=== PATIENT | female | born 2000 | race Caucasian/White ===

== ENCOUNTER 2020-03-08 16:39 | Emergency (ER) | payer BC, SELFPAY ==
[2020-03-08 16:55] VITALS: BP 153/84; PULSE 89; RESP 20; TEMP 36.7; O2SAT 100
--- NOTE | 2020-03-08 17:15 | ED.EAR ---
HPI - Ear Problem General Chief complaint: Ear Stated complaint: ear pain Time Seen by Provider: 03/08/20 17:15 Mode of arrival: ambulatory Limitations: no limitations History of Present Illness HPI Narrative: Poonam Justice is a 19 yo female with PMH of asthma has R ear pain with drainage x 3 days - states pain is really bad Related Data Home Medications Medication Instructions Recorded Confirmed albuterol sulfate [ProAir HFA] 2 puff INHALATION QID PRN 03/08/20 03/08/20 Allergies Allergy/AdvReac Type Severity Reaction Status Date / Time No Known Allergies Allergy Verified 03/08/20 17:02 Review of Systems Review of Systems: Narrative: CONSTITUTIONAL: Denies fever, chills, sweats. EYES: Denies visual changes, redness, discharge. ENT: Denies rhinorrhea, congestion, sore throat, right otalgia. CARDIOVASCULAR: Denies chest pain, palpitations, edema. RESPIRATORY: Denies dyspnea, wheezing, cough GASTROINTESTINAL: Denies abdominal pain, nausea, vomiting, diarrhea. GENITOURINARY: Denies dysuria, hematuria, abnormal discharge SKIN: Denies rash or itching. NEUROLOGIC: Denies numbness, or focal weakness. PSYCHIATRIC: Denies anxiety or depression. PMFSH Past Medical History Medical History Anxiety Bipolar disorder Depression Migraine Narcolepsy Surgical History Surgical History History of tonsillectomy Family History Family History Other No acute medical problems Social History Social History Smoking status: Never smoker Alcohol intake: never Comments At time of signature, I agree with nursing past medical, surgical, social and family history. There is no relevant family history pertinent to the presenting complaint. Should follow-up with PCP for elevated blood pressure Exam Narrative: Exam Narrative: GENERAL: This is a well-nourished, well-developed patient, in moderate distress. HEAD: normocephalic, atraumatic. EYES: Sclera clear/white. Vision is grossly intact. EARS: External ears normal, auditory canals edematous without drainage, TMs normal without perforation; in the lower right jaw under mandible NOSE: External nose normal without nasal discharge, nares without redness, mild rhinorrhea. THROAT: Mucous membranes moist, posterior pharynx NECK: Neck supple, non-tender CARDIOVASCULAR: Regular rate and rhythm without murmurs, gallops, or rubs. RESPIRATORY: Clear to auscultation. Breath sounds equal bilaterally. No wheezes, rales, or rhonchi. GASTROINTESTINAL: Abdomen soft, non-tender, SKIN: warm, intact with no suspicious lesions or rash, good texture and turgor. NEURO: awake, alert, and oriented to person, place and time. There were no obvious focal neurologic abnormalities. Steady gait EXTREMITIES: Normal range of motion. BACK: Nontender without deformity Course Course Emergency Course: Started on PCN and eardrops, Flonase Vital Signs Vital signs: Vital Signs Temperature 98.1 F 03/08/20 16:55 Pulse Rate 89 03/08/20 16:55 Respiratory Rate 20 03/08/20 16:55 Blood Pressure 153/84 H 03/08/20 16:55 Pulse Oximetry 100 03/08/20 16:55 Temperature 98.1 F 03/08/20 16:55 Pulse Rate 89 03/08/20 16:55 Respiratory Rate 20 03/08/20 16:55 Blood Pressure 153/84 H 03/08/20 16:55 Pulse Oximetry 100 03/08/20 16:55 Medical Decision Making Differential Diagnosis Differential Diagnosis: Dental pain, ear pain, otitis media Vital Signs Vital Signs: Vital Signs Temperature 98.1 F 03/08/20 16:55 Pulse Rate 89 03/08/20 16:55 Respiratory Rate 20 03/08/20 16:55 Blood Pressure 153/84 H 03/08/20 16:55 Pulse Oximetry 100 03/08/20 16:55 Temperature 98.1 F 03/08/20 16:55 Pulse Rate 89 03/08/20 16:55 Respiratory Rate 20 0
== END 2020-03-08 17:38 | disposition home or self-care (01) ==
PROVIDERS: Emergency Provider Nurse Practitioner
DX: H66.91 Otitis media, unspecified, right ear (principal); K08.89 Other specified disorders of teeth and supporting structures
CPT/HCPCS: 99213; G0463

== ENCOUNTER 2020-08-22 11:35 | Emergency (ER) | payer BC, SELFPAY ==
[2020-08-22 11:38] VITALS: BP 151/87; PULSE 87; RESP 14; TEMP 36.8; O2SAT 100
[2020-08-22 11:51] VITALS: BP 151/87; PULSE 87; RESP 14; TEMP 36.8; O2SAT 100
--- NOTE | 2020-08-22 12:06 | ED.URI ---
HPI - URI/Sore Throat General Chief Complaint: Upper Respiratory Infection Stated Complaint: sore throat Time Seen by Provider: 08/22/20 12:07 Source: patient History of Present Illness HPI Narrative: Patient presents with a sore throat that started 4 days ago. Patient states she has been exposed to strep throat and works at [employer]. Patient states it hurts to swallow but has no trouble swallowing and no drooling. Patient denies any COVID-19 exposure. Patient denies any shortness of breath no chest pain. MD elicited complaint: sore throat Related Data Home Medications Medication Instructions Recorded Confirmed ferrous sulfate 325 mg PO BID 08/22/20 08/22/20 Allergies Allergy/AdvReac Type Severity Reaction Status Date / Time No Known Allergies Allergy Verified 08/22/20 11:50 Review of Systems Review of Systems: Narrative: CONSTITUTIONAL: Denies chills, or sweats. Reports fever and generalized body aches EYES: Denies visual changes, redness, or discharge. ENT: Denies otalgia. Reports nasal congestion runny nose and sore throat CARDIOVASCULAR: Denies chest pain, palpitations, or edema. RESPIRATORY: Denies dyspnea. Reports occasional cough GASTROINTESTINAL: Denies abdominal pain, nausea, vomiting, or diarrhea. GENITOURINARY: Denies dysuria or hematuria. SKIN: Denies rash or itching. MUSCULOSKELETAL: Denies back pain, joint pain, or myalgia. Reports generalized body aches NEUROLOGIC: Denies headache, numbness, or weakness. PSYCHIATRIC: Denies anxiety or depression. [facility] Past Medical History Medical History (Updated 08/22/20 @ 12:11 by JANE Hudson) Anxiety Bipolar disorder Depression Migraine Narcolepsy Surgical History Surgical History History of tonsillectomy Family History Family History Other No acute medical problems Social History Social History Smoking status: Never smoker Alcohol intake: never Exam Narrative: Exam Narrative: The patient is a well-developed, well-nourished in no acute distress. SKIN: Skin is warm and dry without erythema, swelling or exudate. There is good turgor. No tenting. HEAD: Atraumatic. Normocephalic. No temporal or scalp tenderness. EYES: Moist and bright. Sclera and conjunctivae normal. No discharge. PERRLA. Extraocular motions intact. Gross visual acuity intact. EARS: Pinna is normal shape and contour. Clear external auditory canals. TM pearly mann with good cone of light, no erythema or suppuration. Bilateral cerumen noted no gross hearing deficit. NOSE: pink, moist mucosa with good air movement. Clear rhinorrhea without nasal flaring. Septum midline. Mouth: moist mucous membranes. THROAT; mild erythema noted to posterior oropharynx with moderate postnasal drainage. Without exudate or ulceration.. Uvula midline. Normal movement of soft palate. NECK: Supple and nontender with full range of motion without discomfort. No meningeal signs. LUNGS: Equal and bilateral breath sounds without wheezes, rales or rhonchi. CHEST: The chest wall is without retractions or use of accessory muscles. HEART: Has a regular rate and rhythm without murmur, gallops, click or rub. ABDOMEN: Soft, nontender with positive active bowel sounds. No rebound tenderness. EXTREMITIES: Without cyanosis, clubbing or edema. Equal 2+ distal pulses and 2 second capillary refill noted. NEUROLOGIC: alert, active, . The patient moves all extremities with normal muscle strength. Normal muscle tone is noted. Normal coordination is noted. NO focal neurological findings noted. Course Vital Signs Vital signs: Vital Signs Temperature 36.8 C 08/22/20 11:38 Pulse Rate 87 08/22/20 11:38 Respiratory Rate 14 08/22/20 11:38 Blood Pressure 151/87 H 08/22/20 11:38 Pulse Oximetry 100 08/22/20 11:38 Temperature 36.8 C
== END 2020-08-22 12:16 | disposition home or self-care (01) ==
PROVIDERS: Emergency Provider Nurse Practitioner Family
DX: J02.9 Acute pharyngitis, unspecified (principal); J02.0 Streptococcal pharyngitis
CPT/HCPCS: 87081; 87804; 87880; 99213; G0463

== ENCOUNTER 2020-09-22 12:43 | Inpatient (IN) | payer BC, SELFPAY ==
[2020-09-22] VITALS (11 sets, daily range): BP systolic 104–177; BP diastolic 48–112; PULSE 65–94; RESP 14–20; TEMP 36.7–37.2; O2SAT 94–100; BMI 44.7; BMI 42.3
--- NOTE | ~2020-09-22 | CT_ITS ---
EXAMINATION: CT abdomen pelvis w con DATE: 09/22/2020 14:42 INDICATION: Left abdominal pain. TECHNIQUE: Computed tomography (CT) of the abdomen and pelvis was performed with 100 mL Omnipaque 350 intravenous contrast. Automated exposure control and iterative reconstruction technique were employe d. The dose-length product was 1196.27 mGy-cm. COMPARISON: None. FINDINGS: The visualized portions of the lung bases are clear without pneumonia or pleural effusion. The heart size is normal. No pericardial effusion. The liver, gallbladder, spleen, pancreas, adrenal glands, and kidneys are normal. There are no dilated loops of bowel. The appendix is normal. There ar e no pathologically enlarged lymph nodes. There is no free intraperitoneal fluid. There is a 3.9 cm c yst in right ovary. The bones are unremarkable. IMPRESSION: 1. 3.9 cm cyst in right ovary, likely a follicular cyst. Reviewed, dictated and finalized at location A. LE POINTED OPERATOR
--- NOTE | 2020-09-22 13:05 | ED.ABDPAIN ---
HPI - Abdominal Pain General Chief Complaint: Abdominal Pain Stated Complaint: stomach pain Time Seen by Provider: 09/22/20 12:51 History of Present Illness HPI narrative: 20 yo female w/ h/o anemia and PCOS presents to the ED for abdominal pain. Intermittent LUQ pain for the past few days. No radiation. Feels sharp and like pressure. made worse by lifting things. Associated with nausea and diarrhea. She had one episode of bloody emesis. She has never had this problem before. Related Data Home Medications Medication Instructions Recorded Confirmed ferrous sulfate 325 mg PO BID 08/22/20 08/22/20 Allergies Allergy/AdvReac Type Severity Reaction Status Date / Time No Known Allergies Allergy Verified 08/22/20 11:50 Review of Systems Review of Systems: All systems reviewed & are unremarkable except as noted in HPI and below Constitutional: Constitutional: Denies chills and Denies fever(s) Cardiovascular: Cardiovascular: Denies chest pain Respiratory: Respiratory: Denies dyspnea Gastrointestinal: Gastrointestinal: Reports abdominal pain Genitourinary: Genitourinary: Denies hematuria and Denies dysuria Neurologic: Denies dizziness, Denies numbness and Denies weakness [facility] Past Medical History Medical History (Updated 09/22/20 @ 17:35 by Castro Sharp MD) Anxiety Bipolar disorder Depression Migraine Narcolepsy Surgical History Surgical History History of tonsillectomy Family History Family History Other No acute medical problems Social History Social History Smoking status: Never smoker Alcohol intake: never Exam Const: General: no acute distress and alert Nutritional Appearance: obese Orientation/consciousness: patient oriented x3 HENMT: Head: normal to inspection Resp: Effort & Inspection: normal respiratory effort Auscultation: clear to auscultation bilaterally Cardio: Rate: regular rate Rhythm: regular rhythm GI: Inspection: non-distended GI Palp: Yes Soft to palpation, No Tenderness to palpation present (GI) and No Guarding due to palpation present (GI) Skin: General skin exam: normal color Neuro: General: patient oriented x3 Speech: normal speech Gait exam (Neuro): Normal gait present Course Vital Signs Vital signs: Vital Signs Temperature 36.7 C 09/22/20 13:04 Pulse Rate 86 09/22/20 13:04 Respiratory Rate 20 09/22/20 13:04 Blood Pressure 147/72 H 09/22/20 13:04 Pulse Oximetry 99 09/22/20 13:04 Temperature 36.7 C 09/22/20 17:05 Pulse Rate 74 09/22/20 17:05 Respiratory Rate 14 09/22/20 17:05 Blood Pressure 128/64 09/22/20 17:05 Pulse Oximetry 100 09/22/20 17:05 MDM - Abdominal Pain Differential Diagnosis Differential diagnosis: Likely constipation, gastroenteritis and other (PUD, GERD) Medical Records Attestation: I reviewed the patient's medical records. Lab Data Attestation: I reviewed the patient's lab results. Lab results narrative: severe microcytic anemia. Result diagrams: 09/22/20 13:34 09/22/20 13:34 Labs: Lab Results 09/22/20 09/22/20 09/22/20 Range/Units 13:34 13:34 13:34 WBC 9.9 (4.5-10.0) K/mm3 RBC 4.44 (4.2-5.4) M/mm3 Hgb 6.5 L* (12.0-15.0) g/dL Hct 25.8 L (37.0-47.0) % MCV 58.1 L (80-100) fl MCH 14.6 L (26-34) pg MCHC 25.2 L (32-36) g/dl RDW 23.0 H (11.5-14.5) % Plt Count 502 H (150-375) k/mm3 MPV TNP Immature Gran % (Auto) 0.2 (0-0.5) % Neut % (Auto) 60.5 (45.5-73.1) % Lymph % (Auto) 29.3 (18.3-44.2) % [place] % (Auto) 6.0 (2.6-8.5) % Eos % (Auto) 3.0 (0-4.4) % Baso % (Auto) 1.0 (0.2-1.2) % Lymph # (Auto) 2.89 (0.9-3.2) K/mm3 [place] # (Auto) 0.6 (0.1-0.6) K/mm3 Eos # (Auto) 0.3 (0-0.3) K/mm3 Baso #
[2020-09-22 13:44] LABS: Basophils Absolute Auto 0.1 K/mm3 (0.0-0.1); Eosinophils Absolute Auto 0.3 K/mm3 (0-0.3); Hematocrit 25.8 % (37.0-47.0); Immature Granulocyte Absolute 0.02 K/mm3 (0.00-0.031); Immature Granulocyte Percent A 0.2 % (0-0.5); Immature Platelet Fraction Pct 4.2 % (0.9-11.2); Lymphocytes Absolute Auto 2.89 K/mm3 (0.9-3.2); Lymphocytes Percent Auto 29.3 % (18.3-44.2); Mean Corpuscular HGB Conc 25.2 g/dl (32-36); Mean Corpuscular Hemoglobin 14.6 pg (26-34); Mean Corpuscular Volume 58.1 fl (80-100); Monocytes Absolute Auto 0.6 K/mm3 (0.1-0.6); Neutrophils Percent Auto 60.5 % (45.5-73.1); Platelet Count Result 502 k/mm3 (150-375); Red Blood Count 4.44 M/mm3 (4.2-5.4); White Blood Count 9.9 K/mm3 (4.5-10.0)
[2020-09-22 13:47] LABS: Hemoglobin 6.5 g/dL (12.0-15.0)
[2020-09-22] MEDS: ONDANSETRON INJ 4 MG/2 ML VIAL IV PUSH (13:48)
[2020-09-22] MEDS: PANTOPRAZOLE SODIUM IV 40 MG VIAL IV PUSH (13:48)
[2020-09-22 13:54] LABS: Add Urine Microscopic? YES; Appearance Urine Cloudy (Clear); Bilirubin Urine Negative (Negative); Blood Urine 3+ (Negative); Color Urine Yellow (Yellow); Glucose Urine UA Negative (Negative); Ketones Urine Negative (Negative); Leukocyte Esterase Ur 2+ LEU/UL (Negative); Mucus Urine Few /lpf; Nitrate Urine Negative (Negative); Protein Urine 2+ mg/dL (Negative); RBC Urine 21-50 /hpf (0-2); Specific Grav Ur 1.021 (1.001-1.035); Squamous Epithelial Cell Urine Many /hpf (Few); Urobilinogen Urine Negative mg/dL (<2.0); WBC Urine 21-30 /hpf
[2020-09-22 14:00] LABS: Alanine Aminotransferase 6 U/L (4-35); Albumin Level 4.4 g/dL (3.5-5.1); Alkaline Phosphatase 86 U/L (38-126); Anion Gap 8 mmol/L (8-16); Aspartate Amino Transferase 42 U/L (14-36); Bilirubin,Total 0.5 mg/dL (0.2-1.3); Blood Urea Nitrogen 7 mg/dL (7-17); Calcium 8.8 mg/dL (8.4-10.2); Carbon Dioxide 25 mmol/L (22-30); Chloride 105 mmol/L (98-107); Estimated CRCL calculation 149 ml/min; Estimated Glomerular Filt Rate > 60; Glucose 82 mg/dL (65-105); Lipase 50 U/L (23-300); Potassium 4.5 mmol/L (3.4-5.0); Sodium 138 mmol/L (137-145)
[2020-09-22 14:05] LABS: Hypochromasia 3+ (NORMAL); Ovalocytes 2+ (NORMAL); Platelet Estimate Increased (Adequate)
[2020-09-22 14:06] LABS: Anisocytosis 2+ (NORMAL); Polychromasia 1+ (NORMAL); Stomatocytes 2+ (NORMAL)
[2020-09-22 14:07] LABS: Large Platelets Present; Tear Drop Cells 1+ (NORMAL)
[2020-09-22] MEDS: TUBING, BLOOD SET 1 EACH XX (15:42)
[2020-09-22] MEDS: SODIUM CHLORIDE 0.9% IV 250 ML 30 ML IV CONT ×2 (15:42→21:50)
--- NOTE | 2020-09-22 16:45 | ADMGEN ---
This patient, Poonam Justice, was admitted to 2 Medical Room 240-. Patient/family oriented to hospital policies and general routines including ID bracelet, bed and alarms, visiting hours, pain management, procedures, bathroom and other care routines, personal items, smoking policy, room service/diet, and visiting hours. Information on how to activate the Rapid Response Team has been discussed. Patient/Family are encouraged to report perceived risks to care and to ask questions if they do not understand what they are told or what they should do.
[2020-09-22 16:54] LABS: Iron 11 ug/dL (37-170)
[2020-09-22 16:59] LABS: Percent Iron Saturation 2 % (20-50)
[2020-09-22 17:25] LABS: Ferritin 3.12 ng/mL (6.24-137)
[2020-09-22 17:41] LABS: Folic Acid 14.6 ng/mL (2.76->20)
[2020-09-22] MEDS: LACTATED RINGERS 1,000 ML 125 ML IV CONT (18:45)
[2020-09-22 19:31] LABS: Hematocrit 25.7 % (37.0-47.0)
[2020-09-22 19:33] LABS: Hemoglobin 6.8 g/dL (12.0-15.0)
--- NOTE | 2020-09-22 20:00 | PM.IMHP ---
H&P: HPI History of Present Illness Date/Time: 09/22/20 20:00 Chief complaint: Abdominal pain. Narrative: Poonam Justice is a 20-year-old female with iron deficiency anemia, bipolar disorder, and depression who presented to the emergency department earlier today for evaluation of abdominal pain. She describes a gradual onset of left upper quadrant pain which she describes as pressure-like in nature, although occasionally sharp and stabbing. It does radiate somewhat into the epigastrium and maybe the right upper quadrant. Associated symptoms in include nausea and several episodes of emesis, in fact she mentions 1 episode of bloody emesis. She also believes that there is blood in her stool, but she is wondering if it may be related to her period. With further questioning she admits to menometrorrhagia for many years, and tells me that she had her period every day for an entire year, but she stopped bleeding about a month and a half ago however started spotting again over the past couple of days. She reports compliance with iron supplementation however she had a profound microcytic anemia on arrival to the emergency department today. She was previously on oral contraceptives but stopped taking them because they made her feel bad. She has not had any episodes of emesis nor has she had a bowel movement today. At the time my evaluation she has no complaints and in fact is hungry and is requesting food. She does not drink alcohol but consumes about 76 oz of soda a day. She denies NSAID use. No known history of hemorrhoids. She denies GERD and history of peptic ulcers, pancreatitis, gallbladder disease, and kidney stones. Review of Systems Review of Systems: Narrative: Twelve systems were reviewed with pertinent positives and negatives as per HPI. She has had some mild lightheadedness over the past couple of days. She reports year-round allergies with frequent postnasal drip and dry hacking cough attributed to such. She denies fever, chills, and sweats. No anosmia or dysgeusia. She denies sick contacts, shortness of breath, and exposure to those positive for COVID-19. Weight has remained stable Although she did gain quite a bit of weight after Nexplanon was inserted. That was subsequently removed. she stopped taking her medications for depression and bipolar disorder when she turned 18 for unclear reasons. She denies harmful thoughts. Except as documented, all other systems were reviewed and are negative. [facility] Past Medical History Medical History (Updated 09/22/20 @ 22:33 by Shazia Mcwilliams PA-C) Anxiety Bipolar disorder Depression Iron deficiency anemia Migraine Narcolepsy Surgical History Surgical History History of tonsillectomy Family History Family History Grandparent Hypertension Diabetes mellitus Acute myocardial infarction Mother Cancer Social History Social History (Updated 09/22/20 @ 22:29 by Shazia Mcwilliams PA-C) Social History: Surrogate decision maker: Arabella Rene, friend. Code status: Full code. Smoking status: Current every day smoker Tobacco type: e-cigarettes/vaping Second hand tobacco smoke exposure: Yes Alcohol intake: never Substance use: never Additional living arrangements comments: Lives in [place]. Additional occupation/education comments: works at [employer] in [place]. Spiritual care concerns: No Meds Home Medications and Allergies Home Medications Medication Instructions Recorded Confirmed Type ferrous sulfate 325 mg PO DAILY 08/22/20 09/22/20 History cetirizine [Zyrtec] 10 mg PO DAILY 09/22/20 09/22/20 History Allergies Allergy/AdvReac Type Severity Reaction Status Date / Time No Known Allergies Allergy Verified 09/22/20 17:54 Vital Signs Vital Signs - 24 hr 09/22/20 13:04 09/22/20 15:29 09/22/20
[2020-09-23] VITALS (10 sets, daily range): BP systolic 116–136; BP diastolic 52–71; PULSE 52–82; RESP 16–20; TEMP 36.3–36.9; O2SAT 97–100
[2020-09-23 01:59] LABS: Hematocrit 28.2 % (37.0-47.0); Hemoglobin 7.7 g/dL (12.0-15.0)
[2020-09-23 06:58] LABS: Hematocrit 32.5 % (37.0-47.0); Hemoglobin 9.1 g/dL (12.0-15.0); Immature Platelet Fraction Pct 3.3 % (0.9-11.2); Mean Corpuscular Hemoglobin 18.3 pg (26-34); Mean Corpuscular Volume 65.3 fl (80-100); Mean Platelet Volume 9.5 fl (7.4-10.4); Platelet Count Result 420 k/mm3 (150-375); Red Blood Count 4.98 M/mm3 (4.2-5.4); Red Cell Distribution Width 29.2 % (11.5-14.5); White Blood Count 5.9 K/mm3 (4.5-10.0)
[2020-09-23 07:04] LABS: Albumin Level 3.6 g/dL (3.5-5.1); Alkaline Phosphatase 78 U/L (38-126); Anion Gap 6 mmol/L (8-16); Aspartate Amino Transferase 20 U/L (14-36); Blood Urea Nitrogen 6 mg/dL (7-17); Calcium 8.6 mg/dL (8.4-10.2); Carbon Dioxide 26 mmol/L (22-30); Chloride 105 mmol/L (98-107); Estimated CRCL calculation 144 ml/min; Estimated Glomerular Filt Rate > 60; Glucose 85 mg/dL (65-105); Potassium 4.4 mmol/L (3.4-5.0); Sodium 137 mmol/L (137-145)
[2020-09-23 07:31] LABS: Alanine Aminotransferase < 6 U/L (4-35)
[2020-09-23] MEDS: LORATADINE 10 MG TABLET PO (08:19)
[2020-09-23] MEDS: FERROUS SULFATE 324 MG TABLET PO (08:19)
[2020-09-23] MEDS: PANTOPRAZOLE SODIUM IV 40 MG VIAL IV PUSH ×2 (08:20→20:20)
[2020-09-23] MEDS: LACTATED RINGERS 1,000 ML 125 ML IV CONT ×2 (08:23→18:52)
[2020-09-23 09:53] LABS: Hematocrit 33.3 % (37.0-47.0); Hemoglobin 9.4 g/dL (12.0-15.0)
--- NOTE | 2020-09-23 10:14 | WPDGICN ---
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 transfusion, iron supplement and monitor h/h (2) Menometrorrhagia: Code(s): N92.1 - Excessive and frequent menstruation with irregular cycle Status: Acute (3) Nausea and vomiting in adult: Code(s): R11.2 - Nausea with vomiting, unspecified Status: Acute Assessment and Plan: egd to assess for pud, etc (4) Upper abdominal pain: Code(s): R10.10 - Upper abdominal pain, unspecified Status: Acute (5) Bipolar disorder: Code(s): F31.9 - Bipolar disorder, unspecified Status: Acute GI Consult Note Consult date/time: 09/23/20 10:14 Reason for consult: n/v, FAHAD HPI: Poonam Justice is a 20 year old female with history of iron deficiency anemia, bipolar disorder, depression not taking any treatment and menometrorrhagia for many years who came to the emergency department with intermittent upper abdominal pain for last 2 days described as sharp and stabbing, intermittent, worse after lifting things. She also has been having nausea and vomiting, one time had scant amount of bright red blood with emesis, denies coffee ground. She has seeing a clinical associate who prescribed control pill for her abnormal menstrual periods that can last for several months but she is not taking it because says that will mess with her mind and she would hurt herself . Denies alcohol use, no NSAID's, never had scopes. On admission had hb 6.5, mcv 58, bun 7. She received blood transfusion Review of Systems Constitutional: Constitutional: Reports fatigue Eyes: Eyes: Denies blurry vision ENT: Reports Normal hearing present Cardiovascular: Cardiovascular: Reports lightheadedness Respiratory: Respiratory: Denies cough Gastrointestinal: Gastrointestinal: Reports abdominal pain, Reports nausea and Reports vomiting Genitourinary: Genitourinary: Denies hematuria Musculoskeletal: Musculoskeletal: Denies neck pain Integumentary/Breasts: Skin/Breast: Denies dry skin Neurologic: Denies vertigo Psychiatric: Psychiatric: Reports anxiety Endocrine: Endocrine: Denies cold intolerance Hematologic/Lymphatic: Hematologic/Lymphatic: Denies easy bruising PMFSH Past Medical History Medical History (Updated 09/23/20 @ 10:22 by Dionte Pineda MD) Acute on chronic blood loss anemia Anxiety Bipolar disorder Depression Iron deficiency anemia Menometrorrhagia Migraine Narcolepsy Nausea and vomiting in adult Upper abdominal pain Surgical History Surgical History History of tonsillectomy Family History Family History Grandparent Hypertension Diabetes mellitus Acute myocardial infarction Mother Cancer Social History Social History (Updated 09/22/20 @ 22:29 by Shazia Mcwilliams PA-C) Social History: Surrogate decision maker: Arabellamagen López, friend. Code status: Full code. Smoking status: Current every day smoker Tobacco type: e-cigarettes/vaping Second hand tobacco smoke exposure: Yes Alcohol intake: never Substance use: never Additional living arrangements comments: Lives in [place]. Additional occupation/education comments: works at [employer] in [place]. Spiritual care concerns: No Meds Home Medications and Allergies Home Medications Medication Instructions Recorded Confirmed Type ferrous sulfate 325 mg PO DAILY 08/22/20 09/22/20 History cetirizine [Zyrtec] 10 mg PO DAILY 09/22/20 09/22/20 History
[2020-09-23] MEDS: ACETAMINOPHEN 325 MG TABLET 650 MG PO ×2 (10:51→20:22)
--- NOTE | 2020-09-23 13:18 | PM.IMPN ---
Progress Note: A&P Assessment and Plan (1) Bipolar disorder: Code(s): F31.9 - Bipolar disorder, unspecified Status: Acute (2) Upper abdominal pain: Code(s): R10.10 - Upper abdominal pain, unspecified Status: Acute (3) Nausea and vomiting in adult: Code(s): R11.2 - Nausea with vomiting, unspecified Status: Acute (4) Menometrorrhagia: Code(s): N92.1 - Excessive and frequent menstruation with irregular cycle Status: Acute (5) Acute on chronic blood loss anemia: Code(s): D62 - Acute posthemorrhagic anemia Status: Acute (6) Right ovarian cyst: Code(s): N83.201 - Unspecified ovarian cyst, right side Status: Acute (7) Abdominal pain: Qualifiers: Abdominal location: generalized Qualified Code(s): R10.84 - Generalized abdominal pain Code(s): R10.9 - Unspecified abdominal pain Status: Acute (8) Microcytic anemia: Code(s): D50.9 - Iron deficiency anemia, unspecified Status: Acute Additional Plan # Acute blood loss anemia # lightheadedness likely secondary to anemia # abdominal pressure - secondary to menorrhagia verses GI blood loss - CT abdomen showed 3.9 cm right ovarian cyst likely follicular - GI consult Dr. 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 PPI until EGD # allergies -Continue home Zyrtec # bipolar disorder -no home medications for bipolar, patient will need to follow-up with a PCP Diet: clears for lunch if tolerating will do regular for dinner, will need to be NPO Friday night for Friday morning EGD DVT prophylaxis: SCDs Code status: Full code Disposition: Inpatient, will likely go home Subjective Date/time seen: 09/23/20 13:18 Patient examined bedside. She has no new complaints. She states she has some mild abdominal pressure sensation. Gastrologist examined patient and plans for EGD on Friday09/25/2020. Her hemoglobin on admission was 6.5, received 3 units of packed red blood cells. Patient states he has a history of PCOS which runs in her family. Patient also endorses some lightheadedness. She denies fever, chills, nausea, vomiting, diarrhea, chest pain, dyspnea. Review of Systems Review of Systems: All systems reviewed & are unremarkable except as noted in HPI and below Exam Narrative: Exam Narrative: - GENERAL: Pleasant obese woman no acute distress - EYES: EOMI. Anicteric. - HENT: Moist mucous membranes. No scleral icterus. - LUNGS: Clear to auscultation bilaterally, no wheezing, rhonchi, or rales. - CARDIOVASCULAR: Regular rate and rhythm. No murmur. No JVD. - ABDOMEN: Soft, non-tender and non-distended. No palpable masses. obese. - EXTREMITIES: No edema. Peripheral pulses 2+. Non-tender. - NEUROLOGIC: No focal neurological deficits. CN II-XII grossly intact. - PSYCHIATRIC: Awake, Alert and oriented x 3. Appropriate mood and affect. - SKIN: No rashes or lesions. Warm. - LYMPH: No cervical lymphadenopathy. Objective Data Vital Signs Vital Signs: Vital Signs - 24 hr 09/22/20 15:29 09/22/20 15:50 09/22/20 16:41 Temperature 36.7 C 36.7 C 36.7 C Pulse Rate 88 72 66 Respiratory Rate 18 18 20 Blood Pressure 177/112 H 116/53 L 145/74 H Pulse Oximetry 99 99 100 09/22/20 17:05 09/22/20 17:40 09/22/20 20:02 Temperature 36.7 C 36.8 C 37.2 C Pulse Rate 74 65 94 Respiratory Rate 14 14 18 Blood Pressure 128/64 126/63 119/56 L Pulse Oximetry 100 100 100 09/22/20 21:41 09/22/20 21:
[2020-09-24 05:25] LABS: Hematocrit 31.1 % (37.0-47.0); Hemoglobin 8.8 g/dL (12.0-15.0); Immature Platelet Fraction Pct 2.9 % (0.9-11.2); Mean Corpuscular HGB Conc 28.3 g/dl (32-36); Mean Corpuscular Hemoglobin 18.1 pg (26-34); Mean Corpuscular Volume 64.1 fl (80-100); Mean Platelet Volume 9.8 fl (7.4-10.4); Platelet Count Result 381 k/mm3 (150-375); Red Blood Count 4.85 M/mm3 (4.2-5.4); Red Cell Distribution Width 28.7 % (11.5-14.5); White Blood Count 7.1 K/mm3 (4.5-10.0)
[2020-09-24 06:00] VITALS: BP 123/72; PULSE 53; RESP 16; TEMP 36.7; O2SAT 96
[2020-09-24] MEDS: LACTATED RINGERS 1,000 ML 125 ML IV CONT (06:00)
--- NOTE | 2020-09-24 07:14 | PM.IMPN ---
Progress Note: A&P Assessment and Plan (1) Bipolar disorder: Code(s): F31.9 - Bipolar disorder, unspecified Status: Acute (2) Upper abdominal pain: Code(s): R10.10 - Upper abdominal pain, unspecified Status: Acute (3) Nausea and vomiting in adult: Code(s): R11.2 - Nausea with vomiting, unspecified Status: Acute (4) Menometrorrhagia: Code(s): N92.1 - Excessive and frequent menstruation with irregular cycle Status: Acute (5) Acute on chronic blood loss anemia: Code(s): D62 - Acute posthemorrhagic anemia Status: Acute (6) Right ovarian cyst: Code(s): N83.201 - Unspecified ovarian cyst, right side Status: Acute (7) Abdominal pain: Qualifiers: Abdominal location: generalized Qualified Code(s): R10.84 - Generalized abdominal pain Code(s): R10.9 - Unspecified abdominal pain Status: Acute (8) Microcytic anemia: Code(s): D50.9 - Iron deficiency anemia, unspecified Status: Acute Additional Plan # Acute blood loss anemia # lightheadedness likely secondary to anemia - secondary to menorrhagia verses GI blood loss - GI consult Dr. Coley plan for EGD on 09/25/2020 for hematemesis, will make NPO at midnight - patient will need outpatient follow-up with her public health program manager - s/p 3u PRBC, hgb 8.8 stable with no bleeding - Zofran for nausea - b.i.d. PPI until EGD - patient has had no more episodes of bleeding - will check orthostatic vitals # allergies -Continue home Zyrtec # bipolar disorder -no home medications for bipolar, patient will need to follow-up with a PCP Diet: regular diet, NPO midnight for EGD tomorrow DVT prophylaxis: SCDs Code status: Full code Disposition: Inpatient, will likely go home after EGD if hemoglobin stable Subjective Date/time seen: 09/24/20 07:14 Patient examined. patient states she feels fatigued. Hemoglobin stable 8.8, down from 9.4 likely hemodilutional has patient has no signs or symptoms of bleeding. Stopping IV fluids will encourage p.o. intake fluids. will get patient up to chair today. Plan is for EGD tomorrow morning with Dr. Coley. NPO at midnight. Patient has fever, chills, nausea, vomiting, diarrhea, lightheadedness, dizziness, chest pain, dyspnea. Review of Systems Review of Systems: All systems reviewed & are unremarkable except as noted in HPI and below Exam Narrative: Exam Narrative: - GENERAL: Pleasant obese woman no acute distress - EYES: EOMI. Anicteric. - HENT: Moist mucous membranes. No scleral icterus. - LUNGS: Clear to auscultation bilaterally, no wheezing, rhonchi, or rales. - CARDIOVASCULAR: Regular rate and rhythm. No murmur. No JVD. - ABDOMEN: Soft, non-tender and non-distended. No palpable masses. obese. - EXTREMITIES: No edema. Peripheral pulses 2+. Non-tender. - NEUROLOGIC: No focal neurological deficits. CN II-XII grossly intact. - PSYCHIATRIC: Awake, Alert and oriented x 3. Appropriate mood and flat affect. - SKIN: No rashes or lesions. Warm. - LYMPH: No cervical lymphadenopathy. Objective Data Vital Signs Vital Signs: Vital Signs - 24 hr 09/23/20 10:05 09/23/20 14:00 09/23/20 22:00 Temperature 36.6 C 36.7 C Pulse Rate 62 60 82 Respiratory Rate 16 20 16 Blood Pressure 123/71 120/54 L Pulse Oximetry 97 100 98 09/24/20 06:00 Temperature 36.7 C Pulse Rate 53 L Respiratory Rate 16 Blood Pressure 123/72 Pulse Oximetry 96 Intake/Output Intake/Output: Intake & Output 09/21/20 09/22/20 09/23/20 09/24/20 23:59 23:59 23:59 23:59 Intake Total 550 4050 1300 Output Total 1850 Balance 550 2200 1300 Meds/Results Medications: Active Medications Generic Name Dose Route Start Last Admin Trade Name Freq PRN Reason Stop Dose Admin Acetaminophen 650 mg 09/23/20 10:40 09/23/20 20:22 Acetaminophen 325 Mg Tablet PO 650 mg Q6H PRN Administration Mild Pain (1-3) or Fever Ferrous Sulfate 324 mg 09/23/20
[2020-09-24] MEDS: LORATADINE 10 MG TABLET PO (09:01)
[2020-09-24] MEDS: PANTOPRAZOLE SODIUM IV 40 MG VIAL IV PUSH ×2 (09:01→20:38)
[2020-09-24] MEDS: FERROUS SULFATE 324 MG TABLET PO (09:01)
--- NOTE | 2020-09-24 11:32 | WPDGIPROGNO ---
Progress Note: A&P Assessment and Plan (1) Acute on chronic blood loss anemia: Code(s): D62 - Acute posthemorrhagic anemia Status: Acute Assessment and Plan: appropriate respond hb after blood transfusion egd and colonoscopy tomorrow to rule out GI blood loss, if normal then will need follow up with her ob-digital press operator iron supplement and ppi for now (2) Nausea and vomiting in adult: Code(s): R11.2 - Nausea with vomiting, unspecified Status: Acute Assessment and Plan: improved (3) Menometrorrhagia: Code(s): N92.1 - Excessive and frequent menstruation with irregular cycle Status: Acute (4) Upper abdominal pain: Code(s): R10.10 - Upper abdominal pain, unspecified Status: Acute Assessment and Plan: egd tomorrow (5) Bipolar disorder: Code(s): F31.9 - Bipolar disorder, unspecified Status: Acute Subjective Date/time seen: 09/24/20 11:32 Interval history: she received blood transfusion, pain better, no more emesis. Review of Systems Review of Systems: All systems reviewed & are unremarkable except as noted in HPI and below Exam Const: General: comfortable and no acute distress Nutritional Appearance: obese HENMT: General nose exam: Normal nares present Eyes: General: appearance normal, both eyes and all related structures Neck: Neck: no JVD Resp: Auscultation: clear to auscultation bilaterally Cardio: Rate: regular rate Rhythm: regular rhythm GI: Inspection: non-distended GI Palp: Yes Soft to palpation and No Guarding due to palpation present (GI) Auscultation: normal bowel sounds Skin: General skin exam: no jaundice and pallor Neuro: Speech: normal speech Motor exam (neuro): Normal motor muscle tone present throughout Extrem: General: normal to inspection Psych: Affect: Anxious affect present Objective Data Vital Signs Vital Signs: Vital Signs - 24 hr 09/23/20 14:00 09/23/20 22:00 09/24/20 06:00 Temperature 97.9 F 98.0 F 98.1 F Pulse Rate 60 82 53 L Respiratory Rate 20 16 16 Blood Pressure 123/71 120/54 L 123/72 Pulse Oximetry 100 98 96 Intake/Output Intake/Output: Intake & Output 09/21/20 09/22/20 09/23/20 09/24/20 23:59 23:59 23:59 23:59 Intake Total 550 4050 1420 Output Total 1850 Balance 550 2200 1420 Meds/Results Medications: Active Medications Generic Name Dose Route Start Last Admin Trade Name Brianna PRN Reason Stop Dose Admin Acetaminophen 650 mg 09/23/20 10:40 09/23/20 20:22 Acetaminophen 325 Mg Tablet PO 650 mg Q6H PRN Administration Mild Pain (1-3) or Fever Ferrous Sulfate 324 mg 09/23/20 08:00 09/24/20 09:01 Ferrous Sulfate 324 Mg Tablet PO 324 mg DAILY@0800 HAI Administration Loratadine 10 mg 09/23/20 09:00 09/24/20 09:01 Loratadine 10 Mg Tablet PO 10 mg QAM HAI Administration Ondansetron HCl 4 mg 09/22/20 15:52 Ondansetron Inj 4 Mg/2 Ml Vial IV PUSH Q4H PRN Nausea Pantoprazole Sodium 40 mg 09/23/20 09:00 09/24/20 09:01 Pantoprazole Sodium Iv 40 Mg Vial IV PUSH 40 mg Q12HR HAI Administration Radiology Results: ITS Impressions Abdomen/Pelvis CT 09/22/20 14:42 IMPRESSION: 1. 3.9 cm cyst in right ovary, likely a follicular cyst. Labs Labs: Laboratory Results - last 24 hr 09/24/20 05:09 WBC 7.1 RBC 4.85 Hgb 8.8 L Hct 31.1 L MCV 64.1 L MCH 18.1 L MCHC 28.3 L RDW 28.7 H Plt Count 381 H MPV 9.8 % Immature Plt Fraction 2.9
[2020-09-24 14:00] VITALS: BP 134/82; PULSE 70; RESP 16; TEMP 36.8; O2SAT 100
[2020-09-24] MEDS: PEG (High)/E-LYTE SOLN 4,000 ML BTL 4000 ML PO (16:31)
[2020-09-24] MEDS: BISACODYL 5 MG TABLET EC 20 MG PO (16:33)
[2020-09-24 18:00] VITALS: BP 121/70; BP 138/76; BP 145/84
[2020-09-24] MEDS: ONDANSETRON INJ 4 MG/2 ML VIAL IV PUSH (19:54)
[2020-09-24 20:18] LABS: IFOB Positive Control Positive; Immunochemical Fecal Occult Bl Negative (N)
[2020-09-24 21:18] VITALS: BP 134/64; PULSE 70; RESP 18; TEMP 36.6; O2SAT 100
[2020-09-25] VITALS (11 sets, daily range): BP systolic 91–146; BP diastolic 36–83; PULSE 52–72; RESP 16–22; TEMP 36.2–36.6; O2SAT 97–100
[2020-09-25] MEDS: MAGNESIUM CITRATE 300 ML BTL PO (04:09)
[2020-09-25 05:31] LABS: Hematocrit 34.3 % (37.0-47.0); Hemoglobin 9.5 g/dL (12.0-15.0); Immature Platelet Fraction Pct 3.7 % (0.9-11.2); Mean Corpuscular HGB Conc 27.7 g/dl (32-36); Mean Corpuscular Hemoglobin 18.3 pg (26-34); Mean Corpuscular Volume 66.2 fl (80-100); Mean Platelet Volume 9.9 fl (7.4-10.4); Platelet Count Result 449 k/mm3 (150-375); Red Blood Count 5.18 M/mm3 (4.2-5.4); Red Cell Distribution Width 29.9 % (11.5-14.5); White Blood Count 9.2 K/mm3 (4.5-10.0)
--- NOTE | 2020-09-25 07:31 | PM.DS ---
DS: Admitting Diagnosis Admitting Diagnosis Admitting Diagnosis: Abdominal pain. DS: Discharge Diagnosis Discharge Diagnosis (1) Bipolar disorder: Code(s): F31.9 - Bipolar disorder, unspecified Status: Acute Assessment and Plan: Please establish with primary care provider. (2) Upper abdominal pain: Code(s): R10.10 - Upper abdominal pain, unspecified Status: Acute Assessment and Plan: Resolved (3) Nausea and vomiting in adult: Code(s): R11.2 - Nausea with vomiting, unspecified Status: Acute Assessment and Plan: Resolved (4) Menometrorrhagia: Code(s): N92.1 - Excessive and frequent menstruation with irregular cycle Status: Acute Assessment and Plan: Will need to follow-up with mass spectrometry manager (5) Acute on chronic blood loss anemia: Code(s): D62 - Acute posthemorrhagic anemia Status: Acute Assessment and Plan: Likely secondary to menorrhagia (6) Right ovarian cyst: Code(s): N83.201 - Unspecified ovarian cyst, right side Status: Acute Assessment and Plan: 3.[address] scan (7) Abdominal pain: Qualifiers: Abdominal location: generalized Qualified Code(s): R10.84 - Generalized abdominal pain Code(s): R10.9 - Unspecified abdominal pain Status: Acute Assessment and Plan: Resolved (8) Microcytic anemia: Code(s): D50.9 - Iron deficiency anemia, unspecified Status: Acute Assessment and Plan: Continue iron supplement, if heavy periods and not absorbing iron properly, she may need of occasional iron infusion (9) Profound anemia: Code(s): D64.9 - Anemia, unspecified Status: Acute Assessment and Plan: Hemoglobin 6.5, increased to 9.5 x 3 units of blood. DS: Summary Hospital Course Reason for hospitalization: Anemia, abdominal pain Hospital Course: Patient is a 20-year-old female with past medical history bipolar disorder, iron deficiency, and depression presents to the ED with complaints of abdominal pain. CT abdomen pelvis showed a 3.9 cm right ovarian cyst which is likely follicular. She is found to be anemic hemoglobin 6.5 treated with 3 units packed red blood cells with appropriate increase in hemoglobin, hemoglobin 9.5 on day of discharge. patient also complained of some hematemesis. Dr. Coley was consulted for EGD/colonoscopy 09/25/2020 with normal findings. Patient will follow-up with mass spectrometry manager outpatient for menorrhagia causing significant anemia. We have given referrals for PCP. Since admission she has not had any episodes of blood loss, hematuria, hematochezia, melena, hematemesis, hemoptysis, vaginal bleeding. Patient will establish with PCP. She knows to return to hospital if she has significant bleeding, lightheadedness/dizziness/chest pain/dyspnea. Patient's vitals stable, labs stable, patient is stable for discharge. Status at Discharge Functional status at discharge: independent ambulation Overall status at discharge: patient is progressing back to baseline Time Spent with Patient Time attestation: Total time spent providing and/or coordinating discharge services:35 Exam Narrative: Exam Narrative: - GENERAL: Pleasant obese woman no acute distress - EYES: EOMI. Anicteric. - HENT: Moist mucous membranes. No scleral icterus. - LUNGS: Clear to auscultation bilaterally, no wheezing, rhonchi, or rales. - CARDIOVASCULAR: Regular rate and rhythm. No murmur. No JVD. - ABDOMEN: Soft, non-tender and non-distended. No palpable masses. obese. - EXTREMITIES: No edema. Peripheral pulses 2+. Non-tender. - NEUROLOGIC: No focal neurological deficits. CN II-XII grossly intact. - PSYCHIATRIC: Awake, Alert and oriented x 3. Appropriate mood and flat affect. - SKIN: No rashes or lesions. Warm. Good color. - LYMPH: No cervical lymphadenopathy. DS: Data Data Completed and Pending Labs on day of discharge: Labs from last 24 hours 09/10
[2020-09-25] MEDS: FERROUS SULFATE 324 MG TABLET PO (09:06)
[2020-09-25] MEDS: LORATADINE 10 MG TABLET PO (09:06)
[2020-09-25] MEDS: PANTOPRAZOLE SODIUM IV 40 MG VIAL IV PUSH (09:06)
[2020-09-25] MEDS: LACTATED RINGERS 1,000 ML 150 ML IV CONT (11:53)
--- NOTE | 2020-09-25 12:11 | WPDANESEPPF ---
Anes - Initial Pre Proc Eval Procedure: Operation Date: 09/25/20 13:00 Proposed Procedures p Esophagogastroduodenoscopy & Colonoscopy - Dionte Pineda MD Date/Time: 09/25/20 12:11 Surgeon: Bryn Lanier MD Pre Op Diagnosis: Abdominal pain. Patient Data Age: 20 Gender: F Height: 5 ft 2 in Weight: 102.5 kg Last Vital Signs Temp 97.6 F 09/25/20 11:51 Pulse 52 L 09/25/20 11:51 Resp 16 09/25/20 11:51 BP 114/52 L 09/25/20 11:51 Pulse Ox 100 09/25/20 11:51 Allergies Allergy/AdvReac Type Severity Reaction Status Date / Time No Known Allergies Allergy Verified 09/22/20 17:54 Home Medications Medication Instructions Recorded Confirmed Type ferrous sulfate 325 mg PO DAILY 08/22/20 09/22/20 History cetirizine [Zyrtec] 10 mg PO DAILY 09/22/20 09/22/20 History Laboratory Tests 09/24/20 09/25/20 19:28 04:46 WBC 9.2 K/mm3 K/mm3 (4.5-10.0) RBC 5.18 M/mm3 M/mm3 (4.2-5.4) Hgb 9.5 g/dL L g/dL (12.0-15.0) Hct 34.3 % L % (37.0-47.0) MCV 66.2 fl L fl (80-100) MCH 18.3 pg L pg (26-34) MCHC 27.7 g/dl L g/dl (32-36) RDW 29.9 % H % (11.5-14.5) Plt Count 449 k/mm3 H k/mm3 (150-375) MPV 9.9 fl fl (7.4-10.4) % Immature Plt Fraction 3.7 % % (0.9-11.2) Stl Occult Blood (IFOB) Negative (N) Patient hx anesthesia problems: none Family hx anesthesia problems: none PMFSH Past Medical History Medical History (Updated 09/23/20 @ 13:26 by Erasmo Hdez DO) Acute on chronic blood loss anemia Anxiety Bipolar disorder Depression Iron deficiency anemia Menometrorrhagia Migraine Narcolepsy Nausea and vomiting in adult Upper abdominal pain Surgical History Surgical History History of tonsillectomy Family History Family History Grandparent Hypertension Diabetes mellitus Acute myocardial infarction Mother Cancer Social History Social History (Updated 09/22/20 @ 22:29 by Shazia Mcwilliams PA-C) Social History: Surrogate decision maker: Arabella Rene, friend. Code status: Full code. Smoking status: Current every day smoker Tobacco type: e-cigarettes/vaping Second hand tobacco smoke exposure: Yes Alcohol intake: never Substance use: never Additional living arrangements comments: Lives in [place]. Additional occupation/education comments: works at [employer] in [place]. Spiritual care concerns: No Anes - Eval Final PreProcedure Day of Procedure 09/25/20 12:11 Patient weight: morbidly obese Heart: regular rate and rhythm Lungs: clear to auscultation Airway: Mallampati scale class III Neurological: alert and oriented Last oral intake: >/= 8 hours ASA classification: IV Emergent: no Anesthetic plan: proceed Anesthesia type and monitoring: general GIVS and standard monitoring Informed Consent: The patient's anesthetic plan and its attendant risks and benefits were discussed with the patient/family/POA. Questions were solicited and answers provided to the satisfaction of the patient/family/POA.
--- NOTE | 2020-09-25 12:40 | SUR.OPER ---
EGD ENDED 1229, COLONOSCOPY STARTED 1235
== END 2020-09-25 15:27 | disposition home or self-care (01) | DRG 812 ==
LOC: ANHED 13:07 → ANH2MED 16:31
PROVIDERS: Emergency Medicine; Internal Medicine Gastroenterology; Physician Assistant; Admitting Provider Internal Medicine; Emergency Provider Emergency Medicine; Visit Provider Student in an Organized Health Care Education/Training Program
PROC: 0DJ08ZZ Inspection of Upper Intestinal Tract, Via Natural or Artificial Opening Endoscopic (ICD-10-PCS; CPT 43235; principal; 2020-09-25 13:00)
DX: D62 Acute posthemorrhagic anemia (principal); N92.1 Excessive and frequent menstruation with irregular cycle; R10.84 Generalized abdominal pain; N83.201 Unspecified ovarian cyst, right side; R11.2 Nausea with vomiting, unspecified; F31.9 Bipolar disorder, unspecified; F17.290 Nicotine dependence, other tobacco product, uncomplicated; Z79.899 Other long term (current) drug therapy
CPT/HCPCS: 36415; 36430; 74177; 80053; 81001; 81025; 82274; 82607; 82728; 82746; 83540; 83550; 83690; 84443; 85014; 85018; 85025; 85027; 85055; 86850; 86900; 86901; 86923; 87086; 87088; 88305; 96361; 96374; 96375; 96376; 99285; A9270; C9113; G0378; J2405; J2704; J7050; J7120; P9016; Q9967

== ENCOUNTER 2020-10-06 12:24 | Emergency (ER) | payer BC, SELFPAY ==
[2020-10-06 12:27] VITALS: BP 127/85; PULSE 88; RESP 20; TEMP 36.6; O2SAT 100
--- NOTE | 2020-10-06 13:24 | ECG_ITS ---
Measurements Intervals [place] Rate: 91 P: 41 GA: 153 QRS: 7 QRSD: 82 T: 0 QT: 347 QTc: 427 Interpretive Statements SINUS RHYTHM VOLTAGE CRITERIA FOR LVH BORDERLINE T WAVE ABNORMALITY- INFERIOR LEADS BORDERLINE ECG Electronically Signed On 10-07-2020 7:49:20 CHART COLLECTOR by Simba Blankenship D.O.
[2020-10-06 14:08] LABS: Basophils Absolute Auto 0.1 K/mm3 (0.0-0.1); Basophils Percent Auto 0.8 % (0.2-1.2); Eosinophils Absolute Auto 0.4 K/mm3 (0-0.3); Eosinophils Percent Auto 3.8 % (0-4.4); Hematocrit 35.6 % (37.0-47.0); Hemoglobin 10.3 g/dL (12.0-15.0); Immature Granulocyte Absolute 0.03 K/mm3 (0.00-0.031); Immature Granulocyte Percent A 0.3 % (0-0.5); Immature Platelet Fraction Pct 4.4 % (0.9-11.2); Lymphocytes Absolute Auto 2.76 K/mm3 (0.9-3.2); Lymphocytes Percent Auto 27.4 % (18.3-44.2); Mean Corpuscular HGB Conc 28.9 g/dl (32-36); Mean Corpuscular Hemoglobin 19.5 pg (26-34); Mean Corpuscular Volume 67.4 fl (80-100); Monocytes Absolute Auto 0.7 K/mm3 (0.1-0.6); Monocytes Percent Auto 6.5 % (2.6-8.5); Neutrophils Absolute Auto 6.2 K/mm3 (1.3-6.7); Neutrophils Percent Auto 61.2 % (45.5-73.1); Platelet Count Result 452 k/mm3 (150-375); Red Blood Count 5.28 M/mm3 (4.2-5.4); White Blood Count 10.1 K/mm3 (4.5-10.0)
[2020-10-06 14:18] LABS: Stomatocytes 1+ (NORMAL)
[2020-10-06 14:19] LABS: Anion Gap 8 mmol/L (8-16); Anisocytosis 1+ (NORMAL); Blood Urea Nitrogen 8 mg/dL (7-17); Calcium 8.8 mg/dL (8.4-10.2); Carbon Dioxide 25 mmol/L (22-30); Chloride 105 mmol/L (98-107); Estimated CRCL calculation 155 ml/min; Estimated Glomerular Filt Rate > 60; Glucose 94 mg/dL (65-105); Hypochromasia 1+ (NORMAL); Macrocytosis 1+ (NORMAL); Platelet Estimate Adequate (Adequate); Sodium 138 mmol/L (137-145); Target Cells 1+ (NORMAL)
--- NOTE | 2020-10-06 15:08 | ED.GENADULT ---
HPI - General Adult General Chief complaint: Syncope Stated complaint: syncope Time Seen by Provider: 10/06/20 14:56 Source: patient, family and old records reviewed Mode of arrival: ambulatory Limitations: no limitations History of Present Illness HPI narrative: Patient is a 20-year-old female who presents to emergency department for evaluation of syncopal episode that occurred at work today while sitting was brief in nature patient has recent history of anemia secondary to vaginal bleeding states that she is continuing to have vaginal bleeding did require transfusion on a recent hospital admission for this has planned follow-up with her adult ministries director in the near future notes that she continues to have intermittent vaginal bleeding patient notes some intermittent cramping in the pelvic area patient denies vomiting diarrhea urinary symptoms or other complaints and on arrival does not appear to be in any distress and is resting comfortably in the room Related Data Home Medications Medication Instructions Recorded Confirmed ferrous sulfate 325 mg PO DAILY 08/22/20 09/22/20 cetirizine [Zyrtec] 10 mg PO DAILY 09/22/20 09/22/20 Allergies Allergy/AdvReac Type Severity Reaction Status Date / Time No Known Allergies Allergy Verified 10/06/20 15:47 Review of Systems Review of Systems: All systems reviewed & are unremarkable except as noted in HPI and below PMFSH Past Medical History Medical History Acute on chronic blood loss anemia Anxiety Bipolar disorder Depression Iron deficiency anemia Menometrorrhagia Migraine Narcolepsy Nausea and vomiting in adult Upper abdominal pain Surgical History Surgical History History of tonsillectomy Family History Family History Grandparent Hypertension Diabetes mellitus Acute myocardial infarction Mother Cancer Social History Social History Social History: Surrogate decision maker: Arabellamagen López, friend. Code status: Full code. Smoking status: Current every day smoker Tobacco type: e-cigarettes/vaping Second hand tobacco smoke exposure: Yes Alcohol intake: never Substance use: never Additional living arrangements comments: Lives in [place]. Additional occupation/education comments: works at [employer] in [place]. Spiritual care concerns: No Exam Narrative: Exam Narrative: GENERAL: Well-appearing, well-nourished, and in no acute distress. HEAD: Normocephalic, atraumatic. EYES: PERRLA and EOMI. ENT: Nares clear, no rhinorrhea or epistaxis. Mucous membranes moist. CHEST: Clear to auscultation. No respiratory distress. No wheezes rales or rhonchi HEART: Regular rate and rhythm. No murmur heard. Normal peripheral pulses. ABDOMEN: Soft, nontender, nondistended, EXTREMITIES: Normal range of motion. No edema. SKIN: Warm, dry, no rash. NEURO: No focal deficits. Alert and oriented x3. PSYCH: Normal mood and affect. Course Course Emergency Course: Patient at this time hemodynamically stable hydrated in the emergency department will be discharged home for follow-up with adult ministries director given reasons to return stable H&H not orthostatic felt appropriate for outpatient reevaluation Vital Signs Vital signs: Vital Signs Temperature 97.9 F 10/06/20 12:27 Pulse Rate 88 10/06/20 12:27 Respiratory Rate 20 10/06/20 12:27 Blood Pressure 127/85 10/06/20 12:27 Pulse Oximetry 100 10/06/20 12:27 Temperature 97.9 F 10/06/20 12:27 Pulse Rate 88 10/06/20 16:03 Respiratory Rate 20 10/06/20 12:27 Blood Pressure 136/84 10/06/20 16:03 Pulse Oximetry 100 10/06/20 12:27 Medical Decision Making MDM Narrative Medical decision making narrative: Patient in the room in no distress no high risk c
[2020-10-06] MEDS: SODIUM CHLORIDE 0.9% IV 1,000 ML 999 ML IV CONT (15:28)
[2020-10-06 15:59] VITALS: BP 126/64; PULSE 69
[2020-10-06 16:01] VITALS: BP 131/72; PULSE 75
[2020-10-06 16:03] VITALS: BP 136/84; PULSE 88
[2020-10-06 16:22] VITALS: PULSE 72
== END 2020-10-06 16:52 | disposition home or self-care (01) ==
PROVIDERS: Emergency Provider Emergency Medicine
DX: R55 Syncope and collapse (principal); D62 Acute posthemorrhagic anemia; F17.290 Nicotine dependence, other tobacco product, uncomplicated; R94.31 Abnormal electrocardiogram [ECG] [EKG]
CPT/HCPCS: 36415; 80048; 81025; 85025; 85055; 93005; 96360; 99284; J7030

== ENCOUNTER 2020-11-20 12:09 | Outpatient (CLI) | payer BC, SELFPAY ==
--- NOTE | ~2020-11-20 | US_ITS ---
EXAMINATION: US pelvic complete w TV DATE: 11/20/2020 13:16 INDICATION: Menometrorrhagia TECHNIQUE: Multiple transabdominal and endovaginal sonographic images of the pelvis were obtained. COMPARISON: None. FINDINGS: The uterus measures 8.3 x 3.5 x 6.2 cm. The endometrial complex measures 7 mm. The right ov cordell measures 2.5 x 1.9 x 1.9 cm. The left ovary measures 5.8 x 5.2 x 5.4 cm. There is a 5.0 x 4.8 x 4 .6 cm cyst with thin internal septation in the left adnexa. There is normal vascular flow in the ovar ies. There is no free fluid in the pelvis. IMPRESSION: 1. Likely minimally complicated cyst of the left ovary. Follow-up ultrasound in 6-12 weeks is recomme nded. Reviewed, dictated and finalized at location A. STRIAL THERAPIST IMPRESSION: 1. Likely minimally complicated cyst of the left ovary. Follow-up ultrasound in 6-12 weeks is recommended.
== END 2020-11-20 12:10 | disposition home or self-care (01) ==
PROVIDERS: Referring Provider Physician Assistant; Visit Provider Obstetrics & Gynecology
DX: N92.1 Excessive and frequent menstruation with irregular cycle (principal)
CPT/HCPCS: 76830; 76856

== ENCOUNTER 2021-06-01 13:31 | Emergency (ER) | payer BC, SELFPAY ==
--- NOTE | ~2021-06-01 | XR_ITS ---
XR chest 2V DATE: 06/01/2021 13:41 INDICATION: Left chest pain TECHNIQUE: PA and lateral views COMPARISON: None FINDINGS: Normal heart size. No hilar or mediastinal enlargement. No pulmonary infiltrate or consolid ation, pleural effusion or pulmonary vascular congestion or pneumothorax. IMPRESSION: No active cardiopulmonary disease Reviewed, dictated and finalized at location A.
[2021-06-01 13:33] VITALS: BP 144/97; PULSE 73; RESP 18; O2SAT 100
--- NOTE | 2021-06-01 13:33 | ECG_ITS ---
Measurements Intervals [place] Rate: 96 P: 42 MN: 148 QRS: 26 QRSD: 77 T: 10 QT: 338 QTc: 427 Interpretive Statements SINUS RHYTHM FREQUENT ATRIAL PREMATURE COMPLEXES MINIMAL Q WAVES- HIGH LATERAL LEADS NONSPECIFIC T-WAVE ABNORMALITY- ANT/INF LEADS ABNORMAL ECG Electronically Signed On 06-01-2021 13:52:00 CDT by Simba Blankenship D.O.
[2021-06-01 13:43] VITALS: BP 141/104; PULSE 87; RESP 20; TEMP 36.6; O2SAT 100
[2021-06-01 13:57] LABS: Basophils Absolute Auto 0.1 K/mm3 (0.0-0.1); Basophils Percent Auto 0.5 % (0.2-1.2); Eosinophils Absolute Auto 0.1 K/mm3 (0-0.3); Eosinophils Percent Auto 1.3 % (0-4.4); Hematocrit 37.4 % (37.0-47.0); Hemoglobin 11.3 g/dL (12.0-15.0); Immature Granulocyte Absolute 0.03 K/mm3 (0.00-0.031); Immature Granulocyte Percent A 0.3 % (0-0.5); Lymphocytes Absolute Auto 2.68 K/mm3 (0.9-3.2); Lymphocytes Percent Auto 24.3 % (18.3-44.2); Mean Corpuscular HGB Conc 30.2 g/dl (32-36); Mean Corpuscular Hemoglobin 22.1 pg (26-34); Mean Platelet Volume 10.5 fl (7.4-10.4); Monocytes Absolute Auto 0.8 K/mm3 (0.1-0.6); Neutrophils Absolute Auto 7.3 K/mm3 (1.3-6.7); Neutrophils Percent Auto 66.6 % (45.5-73.1); Platelet Count Result 441 k/mm3 (150-375); Red Blood Count 5.12 M/mm3 (4.2-5.4); Red Cell Distribution Width 15.9 % (11.5-14.5)
[2021-06-01 14:08] LABS: Prothrombin Time 12.8 Seconds (11.1-14.7)
[2021-06-01 14:09] LABS: Anion Gap 10 mmol/L (8-16); Blood Urea Nitrogen 8 mg/dL (7-17); Calcium 8.8 mg/dL (8.4-10.2); Carbon Dioxide 21 mmol/L (22-30); Chloride 108 mmol/L (98-107); Estimated CRCL calculation 151 ml/min; Estimated Glomerular Filt Rate > 60; Glucose 90 mg/dL (65-110); Partial Thromboplastin Time 30.8 SECONDS (22.3-36.8); Potassium 3.8 mmol/L (3.4-5.0); Sodium 139 mmol/L (137-145)
[2021-06-01 14:21] LABS: Troponin I < 0.012 ng/mL (0.000-0.034)
[2021-06-01 15:44] VITALS: BP 146/98; PULSE 92; RESP 20; TEMP 36.9; O2SAT 100
[2021-06-01 17:17] VITALS: BP 144/97; PULSE 77; RESP 14; O2SAT 100
--- NOTE | 2021-06-01 18:21 | ED.CHESTPAIN ---
HPI - Chest Pain General Chief Complaint: Chest Pain Stated Complaint: chest pain Time Seen by Provider: 06/01/21 16:56 Source: patient Mode of arrival: ambulatory Limitations: no limitations History of Present Illness HPI narrative: Patient is a 21 year old female who presents complaining of left chest pain x 1 day. She denies fever, cough or shortness of breath. Patient denies known exposure to Covid, patient is not vaccinated. She denies all other complaints at this time. Patient denies significant medical history. MD complaint: chest discomfort Related Data Home Medications Medication Instructions Recorded Confirmed No Home Medications 06/01/21 06/01/21 Allergies Allergy/AdvReac Type Severity Reaction Status Date / Time No Known Allergies Allergy Verified 06/01/21 15:45 Review of Systems Review of Systems: Narrative: CONSTITUTIONAL: Denies fever, chills, or sweats. EYES: Denies visual changes, redness, or discharge. ENT: Denies rhinorrhea, congestion, sore throat, or otalgia. CARDIOVASCULAR: Reports chest pain, denies palpitations, or edema. RESPIRATORY: Denies cough or dyspnea. GASTROINTESTINAL: Denies abdominal pain, nausea, vomiting, or diarrhea. GENITOURINARY: Denies dysuria or hematuria. SKIN: Denies rash or itching. MUSCULOSKELETAL: Denies back pain, joint pain, or myalgia. NEUROLOGIC: Denies headache, numbness, dizziness, or weakness. PSYCHIATRIC: Denies anxiety or depression. [facility] Past Medical History Medical History Acute on chronic blood loss anemia Anxiety Bipolar disorder Depression Iron deficiency anemia Menometrorrhagia Migraine Narcolepsy Nausea and vomiting in adult Upper abdominal pain Surgical History Surgical History History of tonsillectomy Family History Family History Grandparent Hypertension Diabetes mellitus Acute myocardial infarction Mother Cancer Social History Social History Social History: Surrogate decision maker: Arabella López, friend. Code status: Full code. Smoking status: Current every day smoker Tobacco type: e-cigarettes/vaping Second hand tobacco smoke exposure: Yes Alcohol intake: never Substance use: never Additional living arrangements comments: Lives in [place]. Additional occupation/education comments: works at [employer] in [place]. Gender identity (if verbalized by the patient): Female Spiritual care concerns: No Exam Narrative: Exam Narrative: GENERAL: Well-appearing, well-nourished, and in no acute distress. HEAD: Normocephalic, atraumatic. EYES: EOMI. No redness or drainage. Conjunctiva are normal. ENT: Mucous membranes pink and moist. CHEST: No respiratory distress. Clear to auscultation. HEART: Regular rate and rhythm. No murmur appreciated. Normal peripheral pulses. GI: Soft, nontender without rebound, or guarding. No distention. Bowel sounds normal in all quadrants. MUSCULOSKELETAL: No bony tenderness. EXTREMITIES: Normal range of motion. No edema. SKIN: Warm, dry, no rash. NEURO: No focal deficits. Alert and oriented x3. Gait steady. PSYCH: Normal affect. No signs of depression or anxiety. Course Vital Signs Vital signs: Vital Signs Pulse Rate 73 06/01/21 13:33 Respiratory Rate 18 06/01/21 13:33 Blood Pressure 144/97 H 06/01/21 13:33 Pulse Oximetry 100 06/01/21 13:33 Temperature 36.9 C 06/01/21 15:44 Pulse Rate 77 06/01/21 17:17 Respiratory Rate 14 06/01/21 17:17 Blood Pressure 144/97 H 06/01/21 17:17 Pulse Oximetry 100 06/01/21 17:17 Reviewed-patient is informed that they may have pre-hypertension or hypertension based on a blood pressure reading. I recommend the patient call the primary care provider listed on their di
[2021-06-01 18:22] LABS: Troponin I < 0.012 ng/mL (0.000-0.034)
[2021-06-01 18:56] VITALS: BP 135/62; PULSE 71; RESP 18; O2SAT 100
== END 2021-06-01 18:57 | disposition home or self-care (01) ==
PROVIDERS: Emergency Medicine; Emergency Provider Nurse Practitioner
DX: R07.9 Chest pain, unspecified (principal); D50.9 Iron deficiency anemia, unspecified; F17.290 Nicotine dependence, other tobacco product, uncomplicated; R03.0 Elevated blood-pressure reading, without diagnosis of hypertension; R94.31 Abnormal electrocardiogram [ECG] [EKG]
CPT/HCPCS: 36415; 71046; 80048; 84484; 85025; 85610; 85730; 93005; 99284